=== PATIENT | female | born 1975 | race Caucasian/White ===

== ENCOUNTER → 2017-10-20 | Outpatient (CLI) | payer BC ==
[~2017-10-20] MED LIST: OMNIPAQUE 350 MG/ML, 75ML BOTTLE ONE
== END | disposition home or self-care (01) ==
LOC: CFH 15:14
PROVIDERS: ATTEND Internal Medicine
DX: K76.0 Fatty (change of) liver, not elsewhere classified (principal); R06.02 Shortness of breath; D86.0 Sarcoidosis of lung
CPT/HCPCS: 71260; 82565; Q9967

== ENCOUNTER → 2019-01-09 | Outpatient (CLI) | payer BC | END | disposition home or self-care (01) | LOC: CVU 12:11 | PROVIDERS: ATTEND Internal Medicine Cardiovascular Disease | DX: R07.89 Other chest pain (principal); Z87.09 Personal history of other diseases of the respiratory system | CPT/HCPCS: 0399T; 93306 ==